=== PATIENT | male | born 1970 | race Caucasian/White ===

== ENCOUNTER 2018-10-24 09:02 | Outpatient (CLI) | payer OTHER, SELFPAY ==
[2018-10-24 11:02] LABS: Anion Gap 9.5 mmol/L (3-11); BUN 27 mg/dL (7-18); CO2 27.5 mmol/L (21.0-32.0); CREATININE 0.98 mg/dL (0.70-1.30); Calcium 8.9 mg/dL (8.5-10.1); Chloride 103 mmol/L (98-107); Cholesterol 214 mg/dL (50-200); Glucose 93 mg/dL (70-100); HDL Cholesterol 41 mg/dL (40-60); LDL CHOLESTEROL 151 mg/dL (<100); Potassium 4.1 mmol/L (3.5-5.1); Sodium 140 mmol/L (136-145); Triglyceride 120 mg/dL (30-150)
== END 2018-10-24 09:22 ==
PROVIDERS: PCP Family Medicine; Visit Provider Family Medicine
DX: Z00.00 Encounter for general adult medical examination without abnormal findings (principal); Z13.220 Encounter for screening for lipoid disorders; Z13.228 Encounter for screening for other metabolic disorders
CPT/HCPCS: 36415; 80048; 80061; 83721

== ENCOUNTER 2021-02-23 10:13 | Outpatient (CLI) | payer OTHER, SELFPAY ==
[2021-02-23 12:43] LABS: Calculated LDL 89 mg/dL (<100); Cholesterol 190 mg/dL (<200); HDL Cholesterol 45 mg/dL (40-60); Triglyceride 283 mg/dL (<150)
== END 2021-02-23 10:14 | disposition home or self-care (01) ==
LOC: LOS 10:14
PROVIDERS: PCP Nurse Practitioner; Referring Provider Nurse Practitioner; Visit Provider Nurse Practitioner
DX: Z13.1 Encounter for screening for diabetes mellitus (principal); Z13.6 Encounter for screening for cardiovascular disorders
CPT/HCPCS: 36415; 80061; 83036

== ENCOUNTER 2023-06-06 01:36 | Outpatient (CLI) | payer OTHER, SELFPAY ==
[2023-06-06 12:32] LABS: Hemoglobin A1C 6.1 % (<5.7)
[2023-06-06 12:41] LABS: Anion Gap 9.6 mmol/L (3-11); BUN 23 mg/dL (7-18); CO2 27.4 mmol/L (21.0-32.0); Calcium 9.1 mg/dL (8.5-10.1); Calculated LDL 109 mg/dL (<100); Chloride 105 mmol/L (98-107); Cholesterol 179 mg/dL (<200); Estimated GFR 91.69 (mL/min/1.73m2); Glucose 108 mg/dL (74-106); HDL Cholesterol 47 mg/dL (40-60); Sodium 142 mmol/L (136-145); Triglyceride 117 mg/dL (<150)
== END 2023-06-06 01:37 | disposition home or self-care (01) ==
LOC: LOS 01:36
PROVIDERS: PCP Nurse Practitioner Family; Visit Provider Nurse Practitioner Family
DX: Z00.00 Encounter for general adult medical examination without abnormal findings (principal); I10 Essential (primary) hypertension; R73.03 Prediabetes; R61 Generalized hyperhidrosis; E66.9 Obesity, unspecified
CPT/HCPCS: 36415; 80048; 80061; 83036

== ENCOUNTER 2024-09-29 10:37 | Outpatient (CLI) | payer OTHER, SELFPAY ==
[2024-09-29 07:19] LABS: HCT 47.3 % (40.0-50.0); HGB 15.7 g/dL (13.5-17.5); MCH 29.9 pg (27.0-33.0); MCHC 33.2 % (32.0-36.0); MCV 90 fL (80-95); MPV 8.9 fL (8.0-11.0); Platelet Count 226 10^3/uL (130-400); RBC 5.25 10^6/uL (4.36-5.78); RDW 12.4 % (11.8-14.1); RDW-SD 40.7 fL; WBC 5.84 10^3/uL (4.4-10.8)
[2024-09-29 07:49] LABS: Hemoglobin A1C 6.3 % (<5.7)
[2024-09-29 07:57] LABS: ALT 47 U/L (16-63); AST 25 U/L (15-37); Albumin 3.7 g/dL (3.4-5.0); Alkaline Phosphatase 80 U/L (46-116); Anion Gap 7.6 mmol/L (3-11); BUN 20 mg/dL (7-18); Bilirubin, Total 0.55 mg/dL (0.2-1.0); CO2 29.4 mmol/L (21.0-32.0); CREATININE 1.1 mg/dL (0.70-1.30); Calcium 9.4 mg/dL (8.5-10.1); Chloride 106 mmol/L (98-107); Estimated GFR 81.28 (mL/min/1.73m2); Glucose 121 mg/dL (74-106); Potassium 4.3 mmol/L (3.5-5.1); Sodium 143 mmol/L (136-145); TSH (W/Ref FT4) 1.32 uIU/mL (0.36-3.74); Total Protein 8.1 g/dL (6.4-8.2)
[2024-09-29 09:36] LABS: Calculated LDL 102 mg/dL (<100); Cholesterol 172 mg/dL (<200); HDL Cholesterol 52 mg/dL (40-60); Triglyceride 92 mg/dL (<150)
== END 2024-09-29 10:38 | disposition home or self-care (01) ==
LOC: LBO 10:43
PROVIDERS: PCP Nurse Practitioner Family; Visit Provider Nurse Practitioner Family
DX: Z00.00 Encounter for general adult medical examination without abnormal findings (principal); R61 Generalized hyperhidrosis; E66.01 Morbid (severe) obesity due to excess calories; Z68.41 Body mass index [BMI] 40.0-44.9, adult; R73.03 Prediabetes; I10 Essential (primary) hypertension
CPT/HCPCS: 36415; 80053; 80061; 85027; 83036; 84443

== ENCOUNTER 2024-11-01 21:18 | Outpatient (REF) | payer OTHER, SELFPAY ==
[2024-11-01 21:09] LABS: Bilirubin Negative (Negative); Blood Negative (Negative); Clarity Clear (Clear); Glucose Negative (Negative); Ketones Negative (Negative); Leukocyte Esterase Negative (Negative); Nitrite Negative (Negative); Specific Gravity 1.025 (1.005-1.025)
== END 2024-11-01 21:19 | disposition home or self-care (01) ==
LOC: LBN 21:18
PROVIDERS: PCP Nurse Practitioner Family; Visit Provider Nurse Practitioner Family
DX: R31.9 Hematuria, unspecified (principal)
CPT/HCPCS: 81003